=== PATIENT | female | born 1980 | race Caucasian/White ===

== ENCOUNTER → 2016-09-14 | Outpatient (CLI) | payer BC ==
--- NOTE | 2016-09-14 10:39 | RAD ---
DATE: 09/14/2016 EXAM: DIGITAL DIAGNOSTIC BILATERAL HISTORY: Left breast pain, recent mastitis COMPARISON: Baseline study This study was interpreted with the benefit of Computerized Aided Detection (CAD). The breast parenchyma is heterogeneously dense, which could reduce the sensitivity of mammography. Breast parenchyma level C. FINDINGS: The patient reports that there was recently a lump in the left breast laterally which resolved following antibiotic therapy. Currently the patient cannot pinpoint a lump. The fibroglandular tissues in the breasts are heterogeneously dense. No mass or suspicious microcalcifications are seen. Minimal benign skin type calcifications are noted. IMPRESSION: No mammographic evidence of malignancy either breast. BI-RADS CATEGORY: 1 NEGATIVE RECOMMENDED FOLLOW-UP: CLIN FOLLOW UP IMAGING CLINICALLY INDICATED PQRS compliance statement: Patient information was entered into a reminder system with a target due date for the next mammogram. Mammography is a sensitive method for finding small breast cancers, but it does not detect them all and is not a substitute for careful clinical examination. A negative mammogram does not negate a clinically suspicious finding and should not result in delay in biopsying a clinically suspicious abnormality. "Our facility is accredited by the [employer] Mammography Program."
== END | disposition home or self-care (01) ==
LOC: MAMMO 09:33
PROVIDERS: ATTEND Family Medicine
DX: N61.0 Mastitis without abscess (principal); N63 Unspecified lump in breast
CPT/HCPCS: G0204; 77066